=== PATIENT | male | born 1965 | race Caucasian/White ===

== ENCOUNTER 2016-12-07 07:36 | Inpatient (IN) | payer BC ==
[~2016-12-07] VITALS: Ht 175.3 cm; Wt 82.7 kg
[2016-12-07] VITALS (10 sets, daily range): BP systolic 96–122; BP diastolic 57–84; Ht 175.3 cm; Wt 82.7 kg
[2016-12-07] MEDS ORDERED: LIPITOR40 MG PO (08:08)
[2016-12-07] MEDS ORDERED: METFORMIN HCL500 M1 PO (08:09)
[2016-12-07] MEDS ORDERED: FARXIGA10 MG PO (08:10)
[2016-12-07] MEDS ORDERED: DIPHEDRYL25 MG PO (08:11)
[2016-12-07 09:04] LABS: HEMATOCRIT 45.6 % (42.0-54.0); HEMOGLOBIN 15.5 g/dL (13.5-17.5); MCH 30.6 pg (26.0-34.0); MCV 90.1 fL (80.0-100.0); MEAN PLATELET VOLUME 9.9 fL (7.4-10.4); RBC 5.06 10x6/uL (4.20-6.10); RDW 12.7 % (11.5-14.5); WBC 5.8 10x3/uL (4.8-10.8)
[2016-12-07 09:08] LABS: CALC OSMOLALITY 287 mosm/kg (275-300); CALCIUM 9.2 mg/dL (8.5-10.1); CARBON DIOXIDE 28.6 mmol/L (21.0-32.0); CHLORIDE - SERUM 106 mmol/L (98-107); CREATININE - SERUM 0.8 mg/dL (0.6-1.3); GLUCOSE 147 mg/dL (74-106); POTASSIUM - SERUM 4.5 mmol/L (3.5-5.1); SODIUM 143 mmol/L (136-145); UREA NITROGEN 13 mg/dL (7-18); eGFR NON AFRICAN AMERICAN > 90 mL/min (90-120)
--- NOTE | 2016-12-07 16:57 | NUR ---
1635-RECD FROM [facility]. DR PENA HERE TO SPEAK TO FAMILY.
--- NOTE | 2016-12-07 19:00 | NUR ---
REPORT RECEIVED AND CARE ASSUMED. INITIAL SHIFT ASSESSMENT COMPLETED SEE FLOWSHEET. IV OF NS IS AT KVO TO RIGHT FA IV. D/C'D AND IV S/L ORDERED. PT DENIES NAUSEA AND IS TOLERATING FULL LIQUID DIET WITH GOOD INTAKE. RIGHT GROIN WITH HEMATOMA NOTED. SMALLER THAN AREA MARKED WHICH WOULD HAVE BEEN ORIGINAL BOUNDARIES. SANDBAG IS PRESENT TO RIGHT GROIN. NO BRUISING TO BACK OR FLANK TO INDICATE RETROPERITNEAL BLEEDING. NOTE RIGHT FOOT IS SOMEWHAT COOLER THAN LEFT FOOT. PEDAL PULSES DIFFICULT TO FIND WITH DOPPLER AMY THE RIGHT WHICH IS WEAKER THAN THE LEFT. BOTH DISTINCTLY AUDIBLE. POST TIBIAL PULSES EASIER TO LOCATE AND EASILY DOPPLERED. ALL PULSES MARKED. PT GIVEN SF JELLO PER REQUEST. EXTENSIVE PT TEACHING AND RATIONALE DONE TO REINFORCE INPORTANCE OF LYING SUPINE WITH BED IN [place]VERSE [place]. PT VERBALIZED COMPREHENSION OF ORDERS AND AGREABLE TO TREATMENT RENDERED. PT BEING MONITORED PER ICU PROTOCOL WITH ALL ALARMS VERIFIED AND SET. CALL LIGHT LEFT IN HIS REACH AND BED IS VISIBLE FROM NURSES STATION
--- NOTE | 2016-12-07 20:00 | NUR ---
PULSES RECHECKED VIA DOPPLER AFTER HAVING FEET WRAPPED IN WARM BLANKET. STILL A NOTEABLE DIFFERENCE IN RIGHT VS LEFT FOOT BUT RIGHT FOOT DEFINATELY WARMER THAN BEFORE. PULSES MORE EASILY DOPPLERED AT THIS TIME. PT CONTINUES TO DENY NAUSEA AND REQUESTING ICE CREAM. SF ICE CREAM PROVIDED.
[2016-12-07 20:37] LABS: BASOPHILS 0.3 % (0-2); EOSINOPHILS 1.3 % (0-7); HEMATOCRIT 41.6 % (42.0-54.0); HEMOGLOBIN 13.9 g/dL (13.5-17.5); IMMATURE GRANULOCYTES 0.2 % (0-5); LYMPHOCYTES 17.1 % (15-50); MCH 30.5 pg (26.0-34.0); MCHC 33.4 g/dL (31.0-37.0); MCV 91.4 fL (80.0-100.0); MEAN PLATELET VOLUME 9.5 fL (7.4-10.4); MONOCYTES 6.3 % (2-11); NEUTROPHILS 74.8 % (40-80); RBC 4.55 10x6/uL (4.20-6.10); RDW 12.8 % (11.5-14.5)
[2016-12-07 20:39] LABS: PLATELET COUNT 179 10x3/uL (130-400); WBC 9.8 10x3/uL (4.8-10.8)
--- NOTE | 2016-12-07 21:17 | NUR ---
CURRENTLY SLEEPING RESP REG AND NONLABORED FAMILY HAS LEFT FOR THE NIGHT. CONTACT INFORMATION HAS BEEN GIVEN AND PASSWORD WAS ESTABLISHED BEFORE THEY LEFT
--- NOTE | 2016-12-07 23:00 | NUR ---
SHIFT REASSESSMENT COMPLETED SEE FLOWSHEET. PEDAL PULSES MORE EASILY DOPPLERED AT THIS TIME. NO CHANGE IN HEMATOMA. NO DISCOLORATION OF BACK OR FLANK TO INDICATE ANY FURTHER BLEEDING. PT HAS VOIDED AND URINE IS CLEAR YELLOW.
[2016-12-08] VITALS (14 sets, daily range): BP systolic 89–110; BP diastolic 44–62
--- NOTE | 2016-12-08 01:00 | NUR ---
PT SLEEPING RESP REG AND NONLABORED
--- NOTE | 2016-12-08 03:00 | NUR ---
SHIFT REASSESSMENT COMPLETED SEE FLOWSHEET. PHLEBOTOMY HAS BEEN AT BEDSIDE TO DRAW AM LABS PER DOCTOR ORDERS. PULSES ARE EASY TO DOPPLER FEET ARE WARM WITH RIGHT REMAINING ONLY SLIGHTLY COOLER THAN LEFT. NO CHANGE IN HEMATOMA TO RIGHT GROIN. SANDBAG REMAINS ON GROIN AREA. NO BRUISING OR DISCOLORATION TO BACK OR FLANK. PT HAS BEEN SLEEPING WELL BUT IS EASILY AWAKEN TO VERBAL STIMULI
[2016-12-08 03:22] LABS: BASOPHILS 0.4 % (0-2); EOSINOPHILS 2.1 % (0-7); HEMATOCRIT 38.3 % (42.0-54.0); HEMOGLOBIN 12.8 g/dL (13.5-17.5); IMMATURE GRANULOCYTES 0.1 % (0-5); MCH 30.5 pg (26.0-34.0); MCHC 33.4 g/dL (31.0-37.0); MCV 91.4 fL (80.0-100.0); MEAN PLATELET VOLUME 9.4 fL (7.4-10.4); MONOCYTES 5.9 % (2-11); NEUTROPHILS 71.5 % (40-80); PLATELET COUNT 180 10x3/uL (130-400); RBC 4.19 10x6/uL (4.20-6.10); RDW 12.7 % (11.5-14.5)
[2016-12-08 03:24] LABS: WBC 6.8 10x3/uL (4.8-10.8)
--- NOTE | 2016-12-08 05:00 | NUR ---
PULSES DOPPLERED AND CONTINUE TO BE EASIER TO FIND WITH EACH SUCCESSIVE INTERVENTION. RIGHT PEDAL PULSE IS STRONGER THAN AT THE FIRST OF THE SHIFT. RIGHT GROIN HEMATOMA IS ESSENTIALLY UNCHANGED AND NO DISCOLORATION OR BRUISING NOTED ON BACK OR FLANK. PT CHEERFUL PLEASANT AND COOPERATIVE
--- NOTE | 2016-12-08 07:15 | NUR ---
REPORT RECIEVED FROM RESIDENT INTERN NURSE. PT RESTING IN [place]SE [place]. NO S/SX OF ACUTE DISTRESS NOTED AT THIS TIME. VSS. DENIES PAIN. RIGHT GROIN SITE WITH SAND BAG IN PLACE. HEMATOMA SOFTENING FROM PREV ASSESSMENT YESTERDAY. PULSES TO LE'S FOUND EASILY USING DOPPLER. FEET WARM TO TOUCH BILATERALLY. FULL ASSESSMENT COMPLETE PER FLOWSHEET. REFER FOR DETAIL. CALL LIGHT IN REACH. BED IN LOW POSITION. WILL CONT TO ASSESS.
--- NOTE | 2016-12-08 08:45 | NUR ---
SPOKE WITH DR. GILLESPIE. RECIEVED TELEPHONE ORDER FOR PLAVIX 75MG ONE TIME DOSE. STATED HE WOULD BE IN TO SEE PATIENT AND POSSIBLY DISCHARGE HOME. NO FURTHER ORDERS RECIEVED.
--- NOTE | 2016-12-08 09:00 | NUR ---
FAMILY AT BEDSIDE. UPDATE PROVIDED.
--- NOTE | 2016-12-08 11:00 | NUR ---
REASSESSMENT COMPLETE PER FLOWSHEET. NO CHANGES NOTED AT THIS TIME.
--- NOTE | 2016-12-08 13:30 | NUR ---
DR. GILLESPIE AT BEDSIDE FOR D/C INSTRUCTIONS.
--- NOTE | 2016-12-08 13:54 | NUR ---
WHEELED OUT VIA W/C FOR TRANSPORTATION. D/C INSTRUCTIONS REVIEWED WITH PT. DENIES QUESTIONS.
== END 2016-12-08 14:10 | disposition home or self-care (01) | DRG 909 ==
LOC: D.OPS 07:36 → D.CVICU 07:36 → D.OPS 11:00 → D.CVICU 18:15 → D.OPS 18:16 → D.CVICU 18:18
PROVIDERS: Anesthesiology; Surgery; ADMIT Surgery
PROC: 04CN3ZZ Extirpation of Matter from Left Popliteal Artery, Percutaneous Approach (ICD-10-PCS; 2016-12-07)
PROC: 04CL3ZZ Extirpation of Matter from Left Femoral Artery, Percutaneous Approach (ICD-10-PCS; principal; 2016-12-07 11:00)
DX: I97.638 Postprocedural hematoma of a circulatory system organ or structure following other circulatory system procedure (principal); I73.9 Peripheral vascular disease, unspecified; E11.9 Type 2 diabetes mellitus without complications; K21.9 Gastro-esophageal reflux disease without esophagitis; Y83.8 Other surgical procedures as the cause of abnormal reaction of the patient, or of later complication, without mention of misadventure at the time of the procedure